=== PATIENT | female | born 1980 | race Caucasian/White ===

== ENCOUNTER 2018-05-07 09:45 | Emergency (ER) | payer MEDICAID ==
[~2018-05-07] VITALS: Ht 160 cm; Wt 103.0 kg
[~2018-05-07 09:45] MED LIST: CLON-528 PO; HYDR50CA PO; IBUP-1986 PO; ONDA8TAB6 PO; SERT25TA PO; TRAZ-91 PO
[2018-05-07 09:49] VITALS: BP 129/86
[2018-05-07] MEDS ORDERED: CEPH500C5 PO (10:28)
[2018-05-07] MEDS ORDERED: SULF1TAB49 PO (10:28)
== END 2018-05-07 10:59 | disposition home or self-care (01) ==
LOC: ER 09:45
DX: L03.317 Cellulitis of buttock (principal); G43.909 Migraine, unspecified, not intractable, without status migrainosus; G89.29 Other chronic pain; M54.9 Dorsalgia, unspecified; Z56.0 Unemployment, unspecified; Z79.899 Other long term (current) drug therapy; Z86.14 Personal history of Methicillin resistant Staphylococcus aureus infection; Z88.1 Allergy status to other antibiotic agents
CPT/HCPCS: 99283